=== PATIENT | male | born 1950 | race African-American/Black ===

== ENCOUNTER 2017-01-07 19:53 | Emergency (ER) | payer MEDICARE, MEDICAID ==
[~2017-01-07] VITALS: Ht 175.3 cm; Wt 97.1 kg
[~2017-01-07 19:53] MED LIST: ALBUTEROL; ALLO100T30 PO; AMIT10TA PO; AMIT25PO14; AMLO5TAB2 PO; AMLODIPINE; Amlodipine Besylate PO; CLON0.1T PO; CLONIDINE; CYCL5TAB PO; GABAPENTIN; HYDR-3240 PO; HYDR-757; LISI-167 PO; LISI-170 PO; LISINOPRIL; METO25TA35 PO; NASONEX; PRED50TA PO; SIMV20TA3 PO; SIMVASTATIN
[2017-01-07 19:54] VITALS: BP 150/85
[2017-01-07] MEDS ORDERED: DIPHENHYDRAMINE 25 MG CAPSULE PO ONE (20:30)
[2017-01-07] MEDS ORDERED: FAMOTIDINE 20 MG TABLET PO ONE (20:30)
[2017-01-07] MEDS ORDERED: DIPHENHYDRAMINE 25 MG CAPSULE ONE ×2 (20:35)
[2017-01-07] MEDS ORDERED: FAMOTIDINE 20 MG TABLET ONE (20:36)
== END 2017-01-07 21:24 | disposition home or self-care (01) ==
LOC: ED 21:18
DX: T50.1X5A Adverse effect of loop [high-ceiling] diuretics, initial encounter (principal); Y92.89 Other specified places as the place of occurrence of the external cause; E78.5 Hyperlipidemia, unspecified; E87.1 Hypo-osmolality and hyponatremia; I10 Essential (primary) hypertension; E11.9 Type 2 diabetes mellitus without complications; Z88.6 Allergy status to analgesic agent; Z88.8 Allergy status to other drugs, medicaments and biological substances
CPT/HCPCS: 99283; Q0163

== ENCOUNTER 2017-04-02 06:55 | Emergency (ER) | payer MEDICARE, MEDICAID ==
[~2017-04-02] VITALS: Ht 175.3 cm; Wt 85.5 kg
[2017-04-02] MEDS ORDERED: DIPHENHYDRAMINE 25 MG CAPSULE PO ONE (07:30)
[2017-04-02] MEDS ORDERED: FAMOTIDINE 20 MG TABLET PO ONE (07:30)
[2017-04-02] MEDS ORDERED: DIPHENHYDRAMINE 25 MG CAPSULE ONE (07:30)
[2017-04-02] MEDS ORDERED: FAMOTIDINE 20 MG TABLET ONE (07:30)
[2017-04-02] MEDS ORDERED: SILVER SULF. CRM 1% , 25GM ONE (08:13)
[2017-04-02 08:24] VITALS: BP 113/71
[2017-04-02] MEDS ORDERED: SILVER SULF. CRM 1%, 50GM TP ONE (08:30)
== END 2017-04-02 08:42 | disposition home or self-care (01) ==
LOC: ED 08:01
DX: T78.3XXA Angioneurotic edema, initial encounter (principal); T36.1X5A Adverse effect of cephalosporins and other beta-lactam antibiotics, initial encounter; I10 Essential (primary) hypertension; G89.29 Other chronic pain; M54.9 Dorsalgia, unspecified; E11.9 Type 2 diabetes mellitus without complications; E78.5 Hyperlipidemia, unspecified; Y92.89 Other specified places as the place of occurrence of the external cause; F10.129 Alcohol abuse with intoxication, unspecified
CPT/HCPCS: 99284; J7512; Q0163

== ENCOUNTER 2017-06-15 03:34 | Emergency (ER) | payer MEDICARE, MEDICAID ==
[~2017-06-15] VITALS: Ht 175.3 cm; Wt 94.0 kg
[2017-06-15 04:38] LABS: HEMATOCRIT 40.1 % (39.2-51.8); HEMOGLOBIN 13.4 g/dL (13.7-18.0); WHITE BLOOD COUNT 6.9 x10^3/uL (3.4-10)
[2017-06-15 04:46] LABS: BLOOD UREA NITROGEN 16 mg/dL (7-18)
[2017-06-15 04:51] LABS: IS PT STATUS REG ER OR PRE ER? YES
[2017-06-15 05:15] VITALS: BP 130/82
== END 2017-06-15 05:37 | disposition home or self-care (01) ==
LOC: ED 04:08
DX: F10.220 Alcohol dependence with intoxication, uncomplicated (principal); E78.5 Hyperlipidemia, unspecified; E11.9 Type 2 diabetes mellitus without complications; I10 Essential (primary) hypertension
CPT/HCPCS: 36415; 71020; 80048; 80307; 82040; 84484; 85025; 93005; 99285; G0479